=== PATIENT | male | born 1965 | race Caucasian/White ===

== ENCOUNTER 2021-10-17 21:28 | Emergency (ER) | payer OTHER ==
[~2021-10-17] VITALS: Ht 165.1 cm; Wt 99.8 kg
--- NOTE | 2021-10-17 21:54 | NUR ---
PATIENT BIBSELF C/O BILATERAL ARM/HAND PAIN & NUMBNESS WHILE RESTING X 1 MONTH. PATIENT IS A/O X 4, RR EVEN AND UNLABORED, NO SOB NOTED. PATIENT AMBUALTED TO ER BED 06. CONNECTED TO [employer]NA[employer] AND POX. WILL CONTINUE TO MONITOR.
[2021-10-17] MEDS ORDERED: GABAPENTIN 100 MG CAPSULE ONE (22:31)
[2021-10-17] MEDS: GABAPENTIN 100 MG CAPSULE PO ONE (22:34)
[2021-10-17 22:47] LABS: BASOPHILS % (AUTO) 0.7 % (0.0-2.0); EOSINOPHILS % (AUTO) 2.9 % (0.0-6.0); HEMATOCRIT 40 % (39-51); LYMPHOCYTES # (AUTO) 1.5 K/uL (0.8-4.8); LYMPHOCYTES % (AUTO) 24.1 % (20.0-44.0); MEAN CORPUSCULAR HGB CONC 33 g/dl (31.0-36.0); MEAN CORPUSCULAR VOLUME 88 fL (80-96); MONOCYTES # (AUTO) 0.4 K/uL (0.1-1.30); MONOCYTES % (AUTO) 6.5 % (2.0-12.0); NEUTROPHILS # (AUTO) 4.2 K/uL (1.8-8.9); NEUTROPHILS % (AUTO) 65.8 % (43.0-81.0); PLATELET COUNT (AUTO) 228 K/uL (150-450); RED BLOOD CELL COUNT(AUTO) 4.52 MIL/uL (4.5-6.0); WHITE BLOOD COUNT (AUTO) 6.4 K/uL (4.3-11.0)
[2021-10-17 22:57] LABS: CALCIUM, SERUM 8.7 mg/dL (8.5-10.1); CARBON DIOXIDE 28 mmol/L (21-32); CHLORIDE 105 mmol/L (98-107); GLUCOSE 106 mg/dL (74-106); SODIUM SERUM 137 mmol/L (136-145); UREA NITROGEN, BLOOD 18 mg/dL (7-18)
[2021-10-17 23:03] LABS: ALANINE AMINOTRANSFERASE 24 U/L (12-78); ALBUMIN 3.6 g/dL (3.4-5.0); ALKALINE PHOSPHATASE 81 U/L (46-116); ASPARTATE AMINOTRANSFERASE 21 U/L (15-37); BILIRUBIN,DIRECT 0.1 mg/dL (0.0-0.2); BILIRUBIN,TOTAL 0.6 mg/dL (0.2-1.0); LIPASE 65 U/L (73-393); TOTAL PROTEIN, SERUM 7.1 g/dL (6.4-8.2)
[2021-10-17 23:43] VITALS: BP 124/86
--- NOTE | 2021-10-17 23:43 | NUR ---
Patient discharged to home in stable condition. Written and verbal after care instructions given. Patient verbalizes understanding of instruction.
== END 2021-10-17 23:45 | disposition home or self-care (01) ==
LOC: ER 21:43
DX: R20.2 Paresthesia of skin (principal); M50.322 Other cervical disc degeneration at C5-C6 level; M50.323 Other cervical disc degeneration at C6-C7 level; M54.12 Radiculopathy, cervical region; Z87.19 Personal history of other diseases of the digestive system; Z60.2 Problems related to living alone
CPT/HCPCS: 36415; 71045-TC; 72125-TC; 80048-TC; 80076-TC; 82962-TC; 83690-TC; 84484-TC; 85025-TC; 85730-TC

== ENCOUNTER 2023-01-14 14:43 | Emergency (ER) | payer OTHER ==
[~2023-01-14] VITALS: Ht 165.1 cm; Wt 98.9 kg
[2023-01-14 15:30] VITALS: TEMP 97
--- NOTE | 2023-01-14 15:30 | NUR ---
PATIENT CAME WITH NAUSEA AND VOMITING.ALERT AND ORIENTED.ON ROOM AIR.ATTACHED TO MONITOR.
--- NOTE | 2023-01-14 15:32 | NUR ---
DR EATON AT BED SIDE
--- NOTE | 2023-01-14 15:40 | NUR ---
IV INSERTED ON RT HAND NO 20G
[2023-01-14] MEDS ORDERED: ONDANSETRON HCL/PF 4 MG/2 ML VIAL ONE (16:21)
[2023-01-14] MEDS ORDERED: ONDANSETRON HCL/PF 4 MG/2 ML VIAL IVP ONE (16:30)
[2023-01-14] MEDS ORDERED: IV NS 0.9% 1,000 ML BAG IV ONE ×2 (16:30→18:00)
--- NOTE | 2023-01-14 16:57 | NUR ---
LAB AT BED SIDE
[2023-01-14 17:21] LABS: BASOPHILS % (AUTO) 0.4 % (0.0-2.0); EOSINOPHILS % (AUTO) 0.4 % (0.0-6.0); HEMATOCRIT 44 % (39-51); HEMOGLOBIN 14.6 g/dL (13.5-17.5); LYMPHOCYTES # (AUTO) 1.3 K/uL (0.8-4.8); LYMPHOCYTES % (AUTO) 13.8 % (20.0-44.0); MEAN CORPUSCULAR HGB CONC 33 g/dl (31.0-36.0); MEAN CORPUSCULAR VOLUME 89 fL (80-96); MONOCYTES # (AUTO) 0.5 K/uL (0.1-1.30); MONOCYTES % (AUTO) 4.8 % (2.0-12.0); NEUTROPHILS # (AUTO) 7.9 K/uL (1.8-8.9); NEUTROPHILS % (AUTO) 80.6 % (43.0-81.0); PLATELET COUNT (AUTO) 276 K/uL (150-450); RED BLOOD CELL COUNT(AUTO) 4.95 MIL/uL (4.5-6.0); WHITE BLOOD COUNT (AUTO) 9.8 K/uL (4.3-11.0)
[2023-01-14 17:39] LABS: CALCIUM, SERUM 9.7 mg/dL (8.5-10.1); CREATININE 1.5 mg/dL (0.6-1.3); POTASSIUM 3.6 mmol/L (3.5-5.1)
[2023-01-14 17:45] LABS: ALBUMIN 4.2 g/dL (3.4-5.0); BILIRUBIN,DIRECT 0.3 mg/dL (0.0-0.2); BILIRUBIN,TOTAL 1.6 mg/dL (0.2-1.0); TOTAL PROTEIN, SERUM 8.2 g/dL (6.4-8.2)
[2023-01-14] MEDS ORDERED: ONDA4TAB5 PO (18:10)
--- NOTE | 2023-01-14 19:16 | NUR ---
PATIENT HAND OVER TO [place] FOR SUSAN
--- NOTE | 2023-01-14 19:25 | NUR ---
Patient discharged to home in stable condition. Written and verbal after care instructions given. Patient verbalizes understanding of instruction. IV removed. Catheter intact and site benign. Pressure and 4x4 applied to site. No bleeding noted.
[2023-01-14 19:26] VITALS: BP 134/81; O2SAT 97
== END 2023-01-14 19:26 | disposition home or self-care (01) ==
LOC: ER 14:46
DX: E86.0 Dehydration (principal); E80.6 Other disorders of bilirubin metabolism; R11.10 Vomiting, unspecified; Z60.2 Problems related to living alone
CPT/HCPCS: 99283; 96374; 96361; 85025; 80048; 80076; 36415; J2405; J7030 ×2